=== PATIENT | female | born 2000 | race Hispanic/Latino ===

== ENCOUNTER 2021-09-14 16:56 | Emergency (ER) | payer MEDICAID ==
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
[2021-09-14] MEDS ORDERED: oxyCODONE /ACETAMINOPHEN 5-325MG TAB PO ONE (18:31)
[2021-09-14] MEDS ORDERED: TETANUS,DIPH,PERTUSS(ACELL) VACCINE 0.5 ML SYRINGE IM ONE (18:31)
[2021-09-14] MEDS: IBUPROFEN 800 MG TAB PO STA (18:52)
[2021-09-14 18:56] VITALS: BP 133/83
== END 2021-09-14 18:55 | disposition home or self-care (01) ==
LOC: ED 16:56
DX: T21.12XA Burn of first degree of abdominal wall, initial encounter (principal); T21.22XA Burn of second degree of abdominal wall, initial encounter; X11.8XXA Contact with other hot tap-water, initial encounter; Y93.89 Activity, other specified; Y92.89 Other specified places as the place of occurrence of the external cause; Y99.8 Other external cause status
CPT/HCPCS: 90471; 90715; 99282

== ENCOUNTER 2022-05-09 02:14 | Emergency (ER) | payer MEDICAID ==
[2022-05-09 02:22] VITALS: BP 152/87
--- NOTE | 2022-05-09 04:41 | Emergency Department Report ---
ED General Adult HPI - General Chief complaint: Dental/Oral Stated complaint: TOOTH PAIN Time Seen by Provider: 05/09/22 04:20 Source: patient Mode of arrival: Ambulatory Limitations: No Limitations - History of Present Illness Initial comments: Patient a 21-year-old female who presents with dental pain right upper x1 week. Patient has history of infected dental caries. This is a sequela of same. Patient denies fevers or chills no throat or ear pain. Patient is tolerating p.o. intake there is no facial swelling. Pain is rated at 6/10. Pain is e xacerbated by hot and cold stimuli. Pain is relieved by nothing tried. Patient states she does not have a dentist. - Related Data Previous Rx's Medication Instructions Recorded Last Taken Type Ibuprofen [Motrin 800 MG tab] 800 mg PO Q8HR PRN #20 tablet 09/14/21 Unknown Rx Mupirocin [Bactroban 2% OINT] 1 applic TP TID 14 Days #1 tube 09/14/21 Unknown Rx Silver Sulfadiazine 1 gm TP BID 7 Days #1 cream..g. 09/14/21 Unknown Rx traMADoL [Ultram 50 MG tab] 50 mg PO Q8HR PRN #8 tablet 09/14/21 Unknown Rx Amoxicillin [Amoxicillin TAB] 875 mg PO BID 7 Days #14 tab 05/09/22 Unknown Rx Chlorhexidine Mouthwash [Peridex] 15 ml MM BID #1 bottle 05/09/22 Unknown Rx Ibuprofen [Motrin 800 MG tab] 800 mg PO Q8HR PRN #30 tablet 05/09/22 Unknown Rx Allergies Allergy/AdvReac Type Severity Reaction Status Date / Time No Known Allergies Allergy Unverified 09/14/21 17:00 ED Review of Systems ROS: Stated complaint: TOOTH PAIN Other details as noted in HPI Constitutional: denies: chills, fever Eyes: as per HPI ENT: dental pain Respiratory: denies: cough, shortness of breath, wheezing Cardiovascular: denies: chest pain, palpitations Endocrine: no symptoms reported Gastrointestinal: denies: abdominal pain, nausea, diarrhea Genitourinary: denies: urgency, dysuria, discharge Musculoskeletal: denies: back pain, joint swelling, arthralgia Skin: denies: rash, lesions Neurological: denies: headache, weakness, paresthesias Psychiatric: denies: anxiety, depression Hematological/Lymphatic: denies: easy bleeding, easy bruising ED Past Medical Hx - Medications Home Medications: Home Medications Medication Instructions Recorded Confirmed Last Taken Type Ibuprofen [Motrin 800 MG tab] 800 mg PO Q8HR PRN #20 tablet 09/14/21 Unknown Rx Mupirocin [Bactroban 2% OINT] 1 applic TP TID 14 Days #1 tube 09/14/21 Unknown Rx Silver Sulfadiazine 1 gm TP BID 7 Days #1 cream..g. 09/14/21 Unknown Rx traMADoL [Ultram 50 MG tab] 50 mg PO Q8HR PRN #8 tablet 09/14/21 Unknown Rx Amoxicillin [Amoxicillin TAB] 875 mg PO BID 7 Days #14 tab 05/09/22 Unknown Rx Chlorhexidine Mouthwash [Peridex] 15 ml MM BID #1 bottle 05/09/22 Unknown Rx Ibuprofen [Motrin 800 MG tab] 800 mg PO Q8HR PRN #30 tablet 05/09/22 Unknown Rx ED Physical Exam - General Limitations: No Limitations General appearance: alert, in no apparent distress - Head Head exam: Present: normocephalic, normal inspection - Eye Eye exam: Present: normal appearance, EOMI Pupils: Present: normal accommodation - ENT ENT exam: Present: normal orophraynx, mucous membranes moist, TM's normal bilaterally, normal external ear exam - Expanded ENT Exam Expanded Mouth exam: Absent: trismus Teeth exam: Present: dental caries (2.) Throat exam: Positive: normal inspection, other (Uvula midline no lesions no exudate). Negative: tonsillar erythema, tonsillomegaly, tonsillar exudate, R peritonsillar mass, L peritonsillar mass - Neck Neck exam: Present: normal inspection, full ROM. Absent: tenderness, lymphadenopathy - Respiratory Respiratory exam: Present: normal lung sounds bilaterally. Absent: respiratory distress, wheezes, stridor - Cardiovascular Cardiovascular Exam: Present: regular rate, normal rhythm, normal heart sounds. Absent: systolic murmur, diastolic murmur, rubs, gallop - GI/Abdominal GI/Abdominal exam: Present: soft, normal bowel sounds. Absent: distended, tenderness - Rectal Rectal exam: Present: deferred - Extremities Exam Extremities exam: Present: normal inspection, full ROM, normal capillary refill - Back Exam Back exam: Present: normal inspection, full ROM. Absent: CVA tenderness (R), CVA tenderness (L) - Neurological Exam Neurological exam: Present: alert, oriented X3, CN II-XII intact, normal gait - Psychiatric Psychiatric exam: Present: normal affect, normal mood - Skin Skin exam: Present: warm, dry, intact, normal color ED Course Vital Signs 05/09/22 02:21 Temperature 98.3 F Pulse Rate 88 Respiratory 18 Rate Blood Pressure 152/87 O2 Sat by Pulse 98 Oximetry ED Medical Decision Making - Medical Decision Making fthis Is infected dental caries no focal abscess, no trismus airway remains patent no exudate no lesion no throat or ear pain. Plan DC to home with prescriptions. Follow-up with your dentist in 2 to 3 days. Return to emergency department should symptoms worsen. Patient verbalized agreement and understanding with discharge plan. Patient DC'd home in stable condition at this time. Critical care attestation.: If time is entered above; I have spent that time in minutes in the direct care of this critically ill patient, excluding procedure time. ED Disposition Clinical Impression: Infected dental caries Disposition: HOME / SELF CARE / HOMELESS Is pt being admited?: No Does the pt Need Aspirin: No Condition: Stable Instructions: Preventive Dental Care, Adult Additional Instructions: Take medications as prescribed, follow-up with your dentist in 1 to 2 days. Return to emergency department should symptoms worsen. Prescriptions: Amoxicillin [Amoxicillin TAB] 875 mg PO BID 7 Days #14 tab Ibuprofen [Motrin 800 MG tab] 800 mg PO Q8HR PRN #30 tablet PRN Reason: pain fever Chlorhexidine Mouthwash [Peridex] 15 ml MM BID #1 bottle Referrals: [facility] [Outside] - 3-5 Days Forms: Work/School Release Form(ED) Time of Disposition: 04:44
[2022-05-09] MEDS ORDERED: traMADol 50 MG TAB PO ONE (05:07)
== END 2022-05-09 05:11 | disposition home or self-care (01) ==
LOC: ED 02:14
DX: K02.9 Dental caries, unspecified (principal)
CPT/HCPCS: 99282